=== PATIENT | male | born 1995 | race Two or more races ===

== ENCOUNTER 2021-02-06 20:42 | Emergency (ER) | payer BC ==
[~2021-02-06] VITALS: Ht 182.9 cm; Wt 129.5 kg
--- NOTE | 2021-02-06 22:15 | PHYS DOC ---
General Adult EDM: Chief Complaint: SORE THROAT HPI: HPI: Patient is a 25 year old male who presents with 4 weeks of throat soreness and dryness, nasal drainage and cough. He does have seasonal allergies. He does have a ENT appointment on Wednesday. 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 Patient states that he also wears a CPAP at night but has not been using the humidifier on it because at times the jug of water will fall over and spill in his truck. He denies fever, body aches, nausea, vomiting, diarrhea, headache, dizziness, syncope, chest pain, shortness of breath, focal weakness, vision changes, numbness or tingling. Review of Systems: Review of Systems: Constitutional: Denies fever or chills. [] Eyes: Denies change in visual acuity. [] HENT: + nasal congestion or +sore throat. [] Respiratory: + cough or denies shortness of breath. [] Cardiovascular: Denies chest pain or edema. [] GI: Denies abdominal pain, nausea, vomiting, bloody stools or diarrhea. [] : Denies dysuria. [] Musculoskeletal: Denies back pain or joint pain. [] Integument: Denies rash. [] Neurologic: Denies headache, focal weakness or sensory changes. [] Endocrine: Denies polyuria or polydipsia. [] Lymphatic: Denies swollen glands. [] Psychiatric: Denies depression or anxiety. [] Heart Score: C/O Chest Pain: No Physical Exam: PE: Constitutional: Well developed, well nourished, no acute distress, non-toxic appearance. [] HENT: Normocephalic, atraumatic, bilateral external ears normal, oropharynx moist, no oral exudates, nose normal. Postnasal drip. Throat reddened. [] Eyes: PERRLA, EOMI, conjunctiva normal, no discharge. [] Neck: Normal range of motion, no tenderness, supple, no stridor. [] Cardiovascular:Heart rate regular rhythm, no murmur [] Lungs & Thorax: Bilateral breath sounds clear to auscultation [] Abdomen: Bowel sounds normal, soft, no tenderness, no masses, no pulsatile masses. [] Skin: Warm, dry, no erythema, no rash. [] Back: No tenderness, no CVA tenderness. [] Extremities: No tenderness, no cyanosis, no clubbing, ROM intact, no edema. [] Neurologic: Alert and oriented X 3, normal motor function, normal sensory function, no focal deficits noted. [] Psychologic: Affect normal, judgement normal, mood normal. [] EKG: EKG: [] Radiology/Procedures: Radiology/Procedures: [] Impression: [facility] [address] [place] [address] IMAGING REPORT Signed PATIENT: TERESA CAN: [id number] : 1995 LOCATION: ER AGE: 25 SEX: M EXAM STATUS: PRE ER ORD. PHYSICIAN: MARC MOSQUERA APRN REASON: COUGH X 4 MONTHS PROCEDURE: CHEST PA & LATERAL PA and lateral chest radiographs 02/06/2021 CLINICAL HISTORY: Cough for 4 months. PA and lateral digital radiographs of the chest were obtained. No previous studies are available for comparison. The cardiac and mediastinal silhouettes are within normal limits in size and configuration. No pulmonary infiltrate is seen. No pleural effusion or pneumothorax is noted. The osseous structures are grossly intact. IMPRESSION: No acute abnormality is seen. Electronically signed by: Dwight Noonan MD (02/06/2021 10:44 PM) [id number] DICTATED and SIGNED BY: DWIGHT NOONAN MD DATE: 02/06/21 [id number] 0 Course & Med Decision Making: Course & Med Decision Making Pertinent Labs and Imaging studies reviewed. (See chart for details) See HPI. Throat reddened. No swelling or exudates to tonsils. Uvula midline. No trismus. Postnasal drip present. No sinus tenderness with palpation. Afebrile. Speaks in full clear sentences. Lungs are clear all station all lobes. Vital signs within normal limits. Patient is educated to continue following up with his ENT doctor on Wednesday as scheduled. He is educated that he needs to start using the humidifier on his CPAP machine and try sucking on hard candy and taking allergy medication. He is vaccinated for Covid. Rapid strep negative. Chest x-ray negative. [] Dragon Disclaimer: Dragon Disclaimer: This electronic medical record was generated, in whole or in part, using a voice recognition dictation system. Departure Departure Impression: Primary Impression: Sore throat Additional Impression: Chronic cough Disposition: HOME / SELF CARE / HOMELESS Condition: STABLE Patient Instructions: Cough, Adult, Sore Throat Additional Instructions: Follow-up with ENT as scheduled on Wednesday. Take allergy medicine daily. Continue using nasal spray. Start using the humidifier in your CPAP every night. Drink plenty of water. Scripts Benzocaine/Menthol (CEPACOL SORE THROAT LOZENGE) 1 Each Lozenge 1 TAB PO Q4HRS for sore throat for 3 Days, #18 TAB 0 Refills Prov: MARC MOSQUERA APRN 02/06/21 Methylprednisolone (MEDROL) 4 Mg Tab.ds.pk 1 PKG PO UD, #1 PKG Prov: MARC MOSQUERA APRN 02/06/21 MARC MOSQUERA APRN Feb 06, 2021 22:15
--- NOTE | 2021-02-06 22:46 | RAD ---
PA and lateral chest radiographs 02/06/2021 CLINICAL HISTORY: Cough for 4 months. PA and lateral digital radiographs of the chest were obtained. No previous studies are available for comparison. The cardiac and mediastinal silhouettes are within normal limits in size and configuration. No pulmon rebeca infiltrate is seen. No pleural effusion or pneumothorax is noted. The osseous structures are arlet sly intact. IMPRESSION: No acute abnormality is seen. Electronically signed by: Dwight Barker MD (02/06/2021 10:44 PM) [id number]
[2021-02-06] MEDS ORDERED: METH4TAB2 PO (22:56)
[2021-02-06] MEDS ORDERED: BENZ1LOZ48 PO (22:56)
[2021-02-06 23:32] VITALS: BP 144/80
== END 2021-02-06 23:36 | disposition home or self-care (01) ==
LOC: ER 20:42
DX: J02.9 Acute pharyngitis, unspecified (principal); R05.3 Chronic cough
CPT/HCPCS: 71046; 87070; 87880; 99284